=== PATIENT | female | born 1985 | race Caucasian/White ===

== ENCOUNTER 2021-02-21 17:34 | Observation (INO) | payer BC ==
[~2021-02-21] VITALS: Ht 160 cm; Wt 87.5 kg
== END 2021-02-21 22:10 | disposition home or self-care (01) ==
LOC: SPU 17:34
PROVIDERS: ADMIT Specialist; ATTEND Specialist
DX: O62.9 Abnormality of forces of labor, unspecified (principal); O36.8130 Decreased fetal movements, third trimester, not applicable or unspecified; Z3A.39 39 weeks gestation of pregnancy
CPT/HCPCS: 81002; G0378